=== PATIENT | male | born 1960 | race Caucasian/White ===

== ENCOUNTER → 2019-09-27 | Outpatient (CLI) | payer BC | END | disposition home or self-care (01) | LOC: LABWHC1 07:18 | PROVIDERS: ATTEND Family Medicine | DX: R19.7 Diarrhea, unspecified (principal) | CPT/HCPCS: 87635 ==

== ENCOUNTER → 2023-12-16 | Outpatient (CLI) | payer BC ==
--- NOTE | 2024-01-12 21:28 | MR ---
Patient: Toby Altamirano Ordering Physician: Unknown, Unknown ID: [id number] Phone, Pager: Phone: N/A Pager: N/A : 1960 Age/Gender: 63Y, M Primary Location: N/A Procedure: MRI PROSTATE ELSYO [facility] Study Date: 12/16/2023 8:58:17 AM EXAMINATION TYPE: MR Prostate wo/w con DATE OF EXAM: 12/30/2023 7:23 AM COMPARISON: None. CLINICAL INDICATION: Elevated PSA TECHNIQUE: Multi-planar, multi-sequence imaging of the pelvis is performed prior to and following the uncomplicated administration of bolus intravenous gadolinium. CONTRAST: 7.5 cc Gadavist Interpretive Criteria: PI-RADS v2.1 SERUM PSA: 10-10-23 = 8.64 03-15-23 = 7.88 SURGICAL PATHOLOGY: No data available. FINDINGS: Prostatic dimensions: 5.9 x 7.4 x 5.4 cm. Ellipsoid Volume:123.45 (PSA density=0.07 ng/mL/mL) CENTRAL GLAND (Central and Transition Zones/CZ+TZ): Multiple bilateral, heterogenous appearing hypertrophic stromal nodules, without suspicious lesion. M edian lobe hypertrophy with protrusion into the base of the bladder. (PI-RADS 2) PERIPHERAL ZONE (PZ): Thinning of the peripheral zone due to BPH of the central gland. No evidence of masslike abnormality, or localized perfusional hypervascularity, to further suggest a focus of clinically significant pros [place] cancer. (PI-RADS 2) SEMINAL VESICLES (SV): Symmetric and unremarkable. PERIPROSTATIC TISSUES: Unremarkable. LYMPH NODES: No enlarged pelvic lymph node. REMAINING PELVIS: Bladder wall is within normal limits given distention. No abnormal free or organized intrapelvic fluid collection. No pathologic bowel dilation or mural thickening. Bilateral fat containing inguinal hernias. OSSEOUS STRUCTURES: No suspicious osseous abnormality. IMPRESSION: 1. No specific features for high-risk prostate cancer. Maximum PI-RADS score: 2. 2. Substantial BPH, estimated gland volume 123.45 mL. 3. No suspicious osseous lesion. No lymphadenopathy. No evidence of prostate adenocarcinoma involving the periprostatic tissues.
== END | disposition home or self-care (01) ==
LOC: RADMRIMAIN 11-15 07:00
PROVIDERS: ATTEND Urology
DX: R97.20 Elevated prostate specific antigen [PSA] (principal); N40.0 Benign prostatic hyperplasia without lower urinary tract symptoms
CPT/HCPCS: 72197; A9585

== ENCOUNTER → 2024-04-01 | Outpatient (CLI) | payer OTHER ==
[2024-04-01 13:43] VITALS: BP 134/75; PULSE 64; RESP 16; TEMP 98
--- NOTE | 2024-04-01 14:02 | P.SLEEP ---
History of Present Illness DATE: 04/01/2024 CONSULTATION/NEW PATIENT EVALUATION HISTORY OF PRESENT ILLNESS/SLEEP-WAKE EVALUATION: 63-year-old gentleman had been evaluated in the sleep center for possible obstructive sleep apnea hypopnea syndrome. SLEEP SCHEDULE: Usually sleep schedule from 10 PM to 5:30 AM on weekdays and from 10 PM to 6 AM on weekend. FALLING ASLEEP: No problems with falling asleep. DURING SLEEP: Patient snores, has witnessed episodes of stop breathing during the sleep by his . Patient wakes up from sleep 3 times with nocturia, gasping for air, sweating, heartburn. Positive history of restless leg symptoms and sleep talking. No history of hypnogogical hallucinations, sleep paralysis, or cataplexy. DURING THE DAY/WAKE STATE: During the day patient has episodes of irritability. Taylor sleepiness scale is 2. Patient does not take naps. PAST MEDICAL HISTORY: BPH. PAST SURGICAL HISTORY: Prostate biopsy. MEDICATIONS: None. SOCIAL HISTORY: Please see below. FAMILY HISTORY: Please see below. REVIEW OF SYSTEMS: Snoring, multiple awakenings from sleep. No fevers. No double vision. No recent chest pain. No shortness of breath. No abdominal pain. No bleeding episodes. No blood in urine. No seizure episodes. PHYSICAL EXAMINATION: GENERAL: A pleasant patient without any distress. VITAL SIGNS: Please see below, weight 164.8 pounds, BMI 26.4. HEENT: PERRLA, EOMI. Evaluation of oropharynx showed tongue protrudes midline, low position of soft palate Mallampati 3, significant retrognathia 3 to 4 mm. NECK: Supple. No JVD. Thyroid is not palpable. 16 inches in circumference. LUNGS: Clear to percussion and to auscultation. Good air exchange. No wheezing or rhonchi. HEART: S1, S2 regular. No murmurs, gallops or rubs. ABDOMEN: Soft and nontender. Bowel sounds are present. No organomegaly appreciated. EXTREMITIES: No clubbing or cyanosis. ORE DRESSING ENGINEER: Awake, alert, and oriented x3. Cranial nerves 2 to 7 intact. There is no fasciculation or atrophy noted. No focal deficits observed. ASSESSMENT: 1. Snoring, witnessed episodes of stop breathing during the sleep, low position of soft palate Mallampati 3, retrognathia 3 to 4 mm. Obstructive sleep apnea hypopnea syndrome. 2. BPH. 3. Snoring. 4. Restless leg symptoms PLAN: 1. Polysomnography for evaluation of patient's breathing during sleep. 2. Following plan after reading sleep study. 3. Preferable position during sleep on the side. 4. No driving if patient feels any sleepiness. Patient is aware of civil and criminal liability for unsafe driving. 5. Sleep hygiene with regular sleep time for at least 7.5-8 hours. 6. Watching weight. Thank you very much for referring this patient for consultation. Sincerely, Jona Goodwin MD, PhD, FAASM. Diplomat of [place] [employer], Sleep Medicine Board by [place] [employer] [place] [employer] [facility] [place] cc: Kim Crow MD Past Medical History Past Medical History: Prostate Disorder History of Any Multi-Drug Resistant Organisms: None Reported Additional Past Surgical History / Comment(s): prostate biopsy Past Anesthesia/Blood Transfusion Reactions: No Reported Reaction Past Psychological History: No Psychological Hx Reported Smoking Status: Never smoker Past Alcohol Use History: Rare Past Drug Use History: None Reported - Past Family History Mother Family Medical History: Hypertension Father Family Medical History: Cancer, Hyperlipidemia, Hypertension, Prostate Disorder Physical Exam Vitals: Vital Signs Temp Pulse Resp BP Pulse Ox 04/01/24 13:42 98.0 F 64 16 134/75 98 Intake and Output 03/31/24 04/01/24 04/01/24 22:59 06:59 14:59 Other: Weight 74.389 kg Sleep Note - Sleep Data ESS Total: 2 - Sleep Note Sleep Note: Temperature: 98.0 F Pulse Rate: 64 Respiratory Rate: 16 Blood Pressure: 134/75 SpO2: 98 Height: 5 ft 6 in Weight: 74.389 kg BMI: Neck Circumference: 16
== END ==
LOC: 3 N SLEEP 13:09
PROVIDERS: ATTEND Internal Medicine
DX: G47.33 Obstructive sleep apnea (adult) (pediatric) (principal); M26.19 Other specified anomalies of jaw-cranial base relationship; N40.0 Benign prostatic hyperplasia without lower urinary tract symptoms; G25.81 Restless legs syndrome
CPT/HCPCS: 99211

== ENCOUNTER → 2024-06-03 | Day surgery (SDC) | payer OTHER ==
[~2024-06-03] MED LIST: DEXAMETHASONE SOD PHOSPHATE 4 MG/ML 1 ML VIAL ONE; GLYCOPYRROLATE 0.2 MG/ML 2 ML VIAL ONE; HYDROmorphone (PF) 1 MG/ML ONE; HYDROmorphone 0.5 MG/0.5 ML SYRINGE IVP PRN; KETOROLAC 15 MG/ML 1 ML VIAL ONE; LIDOCAINE 1% INJ 10MG/ML (20 ML MDV) ONE; MIDAZOLAM 2 MG/2 ML VIAL ONE; NEOSTIGMINE 1 MG/ML 10 ML VIAL ONE; PHENYLEPHRINE-0.9% NACL SYG 1,000 MCG/10 ML SYRINGE ONE; PROPOFOL 10 MG/ML 20 ML VIAL IV ONE; ROCURONIUM 10 MG/ML (5 ML VIAL) IV ONE; ROPIVACAINE 5 MG/ML 30 ML VIAL ONE; SCOPOLAMINE 1 MG/72 HR PATCH TRANSDERM ONE; SODIUM CHLORIDE 0.9% (PF) 10 ML VIAL ONE; SUCCINYLCHOLINE CHLORIDE 200 MG/10 ML VIAL IV ONE; fentaNYL (PF) 50 MCG/ML 2 ML AMP ONE
[2024-06-03] MEDS: IV FLUID CONTINUATION 1,000 ML IV ONE (11:19)
[2024-06-03] MEDS: fentaNYL (PF) 50 MCG/ML 2 ML AMP IVP ONE (11:40)
[2024-06-03] MEDS: MIDAZOLAM 2 MG/2 ML VIAL IV PRN (11:40)
[2024-06-03 11:47] LABS: HCT 41.3 % (39.0-53.0); HGB 14.3 gm/dL (13.0-17.5); MCH 29.9 pg (25.0-35.0); MCHC 34.7 g/dL (31.0-37.0); MCV 85.9 fL (80.0-100.0); Platelet Count 227 k/uL (150-450); RDW 12.4 % (11.5-15.5); WBC 8.3 k/uL (3.8-10.6)
--- NOTE | 2024-06-03 11:56 | P.ANPRN ---
Procedure Note - Anesthesia - Nerve Block Performed Bilateral Erector Spinae Single Time Out Performed: Yes Date of Procedure: 06/03/24 Procedure Start Time: 11:39 Procedure Stop Time: 11:46 Location of Patient: PreOp Indication: Acute Post-Operative Pain Sedation Type: Sedate with meaningful contact maintained Preparation: Sterile Prep Position: Prone Needle Types: Pajunk Needle Gauge: 21 Ultrasound used to visualize needle placement: Yes Ultrasound used to observe medication spread: Yes Injectate: 0.5% Ropivacaine (see comment for volume) (20 mL +10 mL of normal saline +4 mg dexamethasone per side) Blood Aspirated: No Pain Paresthesia on Injection Noted: No Resistance on Injection: Normal Image Stored and Saved: Yes Events: Uneventful and Well Tolerated
[2024-06-03] MEDS: HEPARIN SODIUM,PORCINE 5,000 UNIT/ML 1 ML VIAL SQ PRN (11:58)
[2024-06-03] MEDS: DEXAMETHASONE SOD PHOSPHATE 4 MG/ML 1 ML VIAL IV ONE (11:59)
[2024-06-03] MEDS: ONDANSETRON 4 MG/2 ML VIAL IVP ONE (11:59)
[2024-06-03] MEDS: BUPIVACAINE (PF) 0.25% 30 ML VIAL SQ ONE ×2 (13:31)
[2024-06-03] MEDS: LACTATED RINGERS 1,000 ML IV ONE ×2 (13:58→16:47)
[2024-06-03 14:36] VITALS: RESP 16; TEMP 96.8
[2024-06-03] MEDS: HYDROcodone/APAP 5-325MG 1 EACH TAB PO PRN (15:35)
[2024-06-03] MEDS: LACTATED RINGERS 1,000 ML IV SCH (16:46)
[2024-06-03 16:52] VITALS: BP 144/72; PULSE 75
[2024-06-03] MEDS: TAMSULOSIN 0.4 MG CAP.ER.24H PO STA (17:17)
--- NOTE | 2024-06-03 21:33 | P.OP ---
Date of Procedure: 06/03/24 Preoperative Diagnosis: Bilateral inguinal hernia Postoperative Diagnosis: Bilateral inguinal hernia, left side indirect hernia, right side direct hernia Procedure(s) Performed: Robotic bilateral inguinal hernia repair with mesh placement Anesthesia: JIM Surgeon: Jack Conley Pathology: none sent Condition: stable Disposition: same day Indications for Procedure: 63-year-old male presented to the surgery clinic with complaint of left groin bulge and pain that has been increasing in symptoms over time. On examination he is found to have bilateral inguinal hernia. Plan is for robotic bilateral inguinal hernia repair with mesh placement. Risks, benefits and alternatives were provided to the patient. All questions answered. Operative Findings: Bilateral inguinal hernia Left-sided indirect inguinal hernia Right sided direct inguinal hernia Description of Procedure: The patient was brought to the operating suite and placed in supine position on the operating table. After general endotracheal anesthesia was induced, arms were tucked to the sides bilaterally and pressure points were padded. SCDs were also placed in bilateral lower extremities. Preoperative antibiotics were given prior to incision. A the patient was prepped and draped in regular sterile fashion. A supraumbilical incision was made and dissection was carried towards the fascia and the fascia was incised and an 8 mm trocar was placed. Pneumoperitoneum was achieved. 2 additional 8 mm trocars were placed 11 cm lateral to the supraumbilical incision site. The patient was then placed in Trendelenburg position and the hernia sites were clearly visualized bilaterally. The left inguinal hernia was noted to be indirect and the right inguinal hernia was noted to be direct. The robot was then docked appropriately. Incision was then made just lateral to the medial umbilical ligament on the left side with the monopolar scissors and the peritoneal flap was created and was taken down towards Javid's ligament. The flap was then extended laterally. Attention was then turned to the indirect inguinal hernia. The sac was freed from the cord all while preserving the cord structures. At this point the indirect hernia was reduced. Once the entire space was appropriately dissected out, attention was turned towards the right side. Similarly, incision was made just lateral to the medial umbilical ligament on the right side with the monopolar scissors and the peritoneal flap was created and was taken down towards Javid's ligament. The flap was then extended laterally. Attention was then turned to the hernia and the sac was freed from surrounding structures. Once the entire space was appropriately dissected out, we brought the ProGrip mesh bilaterally and unrolled it over the hernia sites. Once appropriately in place without any folds or kinks, the peritoneal flap was closed using a running 2 oh V-Loc suture on both sides. Once this was completed we removed the robotic instruments and undocked the robot. The supraumbilical fascial incision was closed with an 0 Vicryl suture using a Carl-Jimbo device. This was done under laparoscopic guidance. All skin incisions were then closed with 4-0 Vicryl suture. Sterile dressing was applied. The patient was awakened in the operating suite and taken to postanesthesia care unit in stable condition.
== END | disposition home or self-care (01) ==
LOC: OR 10:52
PROVIDERS: ATTEND Surgery
DX: K40.20 Bilateral inguinal hernia, without obstruction or gangrene, not specified as recurrent (principal); G89.18 Other acute postprocedural pain; N40.0 Benign prostatic hyperplasia without lower urinary tract symptoms; F40.240 Claustrophobia
CPT/HCPCS: 49650; S2900; 64999; 85027

== ENCOUNTER 2024-06-04 02:37 | Emergency (ER) | payer OTHER ==
[2024-06-04 03:02] VITALS: TEMP 98.8
[2024-06-04] MEDS: HYDROcodone/APAP 5-325MG 1 EACH TAB PO STA (04:00)
[2024-06-04] MEDS: LIDOCAINE 2% URO-JET JELLY 5 ML KIT URETHRAL ONE (04:00)
--- NOTE | 2024-06-04 04:35 | ED ---
General Adult HPI - General Chief complaint: Abdominal Pain Stated complaint: Burning from post op surgery site Time Seen by Provider: 06/04/24 03:04 Source: patient, RN notes reviewed, old records reviewed Mode of arrival: wheelchair Limitations: no limitations - History of Present Illness Initial comments: 63-year-old male postop day 1 after robotic assist bilateral inguinal hernia repair. Patient has had urinary frequency and urgency and lower abdominal discomfort. He has been able to urinate but only small amounts. - Related Data Home Medications Medication Instructions Recorded Confirmed L.acidoph,Paracasei, B.lactis 1 each PO DAILY 05/30/24 06/03/24 [Probiotic] Previous Rx's Medication Instructions Recorded HYDROcodone/APAP 5-325MG [Crozier 1 tab PO Q6HR PRN 3 Days #12 tab 06/03/24 5-325] Ibuprofen [Motrin] 600 mg PO Q8HR PRN #30 tab 06/03/24 Allergies Allergy/AdvReac Type Severity Reaction Status Date / Time No Known Allergies Allergy Verified 06/04/24 03:02 Review of Systems ROS Statement: Those systems with pertinent positive or pertinent negative responses have been documented in the HPI. ROS Other: All systems not noted in ROS Statement are negative. Past Medical History Past Medical History: Prostate Disorder History of Any Multi-Drug Resistant Organisms: None Reported Additional Past Surgical History / Comment(s): prostate biopsy Past Anesthesia/Blood Transfusion Reactions: No Reported Reaction Past Psychological History: No Psychological Hx Reported Past Alcohol Use History: Rare - Past Family History Mother Family Medical History: Hypertension Father Family Medical History: Cancer, Hyperlipidemia, Hypertension, Prostate Disorder General Exam Limitations: no limitations General appearance: alert, in no apparent distress Head exam: Present: atraumatic, normocephalic Eye exam: Present: normal appearance, PERRL ENT exam: Present: normal exam Neck exam: Present: normal inspection. Absent: tenderness, meningismus Respiratory exam: Present: normal lung sounds bilaterally. Absent: respiratory distress, wheezes Cardiovascular Exam: Present: regular rate, normal rhythm GI/Abdominal exam: Present: distended, other (Distention the bladder) Neurological exam: Present: alert, oriented X3 Psychiatric exam: Present: normal affect, normal mood Skin exam: Present: warm, dry, intact Course Vital Signs 06/04/24 02:56 Temperature 98.8 F Pulse Rate 81 Respiratory 18 Rate Blood Pressure 123/74 O2 Sat by Pulse 96 Oximetry Medical Decision Making - Medical Decision Making Was pt. sent in by a medical professional or institution (ERIBERTO Sanchez, SYSTEMS LEAD, urgent care, hospital, or fci...) When possible be specific @ -No Did you speak to anyone other than the patient for history (EMS, parent, family, police, friend...)? What history was obtained from this source @ -No Did you review nursing and triage notes (agree or disagree)? Why? @ -I reviewed and agree with nursing and triage notes Were old charts reviewed (outside hosp., previous admission, EMS record, old EKG, old radiological studies, urgent care reports/EKG's, fci records)? Report findings @ -No old charts were reviewed Differential Diagnosis: urinary retention, cystitis, UTI, urethritis EKG interpreted by me (3pts min.). @ -As above X-rays interpreted by me (1pt min.). @ -None done CT interpreted by me (1pt min.). @ -None done U/S interpreted by me (1pt. min.). @ -None done What testing was considered but not performed or refused? (CT, X-rays, U/S, labs)? Why? @ -None What meds were considered but not given or refused? Why? @ -None Did you discuss the management of the patient with other professionals (professionals i.e. ERIBERTO Sanchez, SYSTEMS LEAD, lab, RT, psych nurse, social work administrator, inventory associate, teacher, ski patrol officer, rn case mgr)? Give summary @ -No Was smoking cessation discussed for >3mins.? @ -No Was critical care preformed (if so, how long)? @ -No Were there social determinants of health that impacted care today? How? (Homelessness, low income, unemployed, alcoholism, drug addiction, transportation, low edu. Level, literacy, decrease access to med. care, [facility], rehab)? @ -No Was there de-escalation of care discussed even if they declined (Discuss DNR or withdrawal of care, Hospice)? DNR status @ -No What co-morbidities impacted this encounter? (DM, HTN, Smoking, COPD, CAD, Cancer, CVA, ARF, Chemo, Hep., AIDS, mental health diagnosis, sleep apnea, morbid obesity)? @ -None Was patient admitted / discharged? Hospital course, mention meds given and route, prescriptions, significant lab abnormalities, going to OR and other pertinent info. @ -63-year-old male with suspected urinary retention postoperatively. Bladder scan shows approximately 900 cc of urine. Patient is offered either straight cath or Bonilla catheter. Prefers Bonilla catheter at this time. He will follow- up with urology regarding catheter removal. Undiagnosed new problem with uncertain prognosis? @ -No Drug Therapy requiring intensive monitoring for toxicity (Heparin, Nitro, Insulin, Cardizem)? @ -No Were any procedures done? @ -No Diagnosis/symptom? @ -[Acute postoperative urinary retention Acute, or Chronic, or Acute on Chronic? @ -Acute Uncomplicated (without systemic symptoms) or Complicated (systemic symptoms)? @ -Default Side effects of treatment? @ -No Exacerbation, Progression, or Severe Exacerbation? @ -No Poses a threat to life or bodily function? How? (Chest pain, [place], PR, pneumonia, PE, COPD, DKA, ARF, appy, cholecystitis, CVA, Diverticulitis, Homicidal, Suicidal, threat to staff... and all critical care pts) @ -No Disposition Clinical Impression: Urinary retention Disposition: HOME SELF-CARE Condition: Fair Instructions (If sedation given, give patient instructions): Urinary Retention in Men (ED) Is patient prescribed a controlled substance at d/c from ED?: No Referrals: Kim Crow MD [Primary Care Provider] - 1-2 days Thomas Howe MD [STAFF PHYSICIAN] - 1-2 days Time of Disposition: 04:35
[2024-06-04 04:56] LABS: Appearance,Urine Clear (Clear); Bilirubin,Urine Negative (Negative); Blood,Urine Negative (Negative); Color,Urine Yellow; Glucose,Urine (UA) Negative (Negative); Ketones,Urine Trace (Negative); Leukocyte Esterase,Urine Negative (Negative); Nitrite,Urine Negative (Negative); Protein,Urine Negative (Negative); Specific Gravity,Urine 1.007 (1.001-1.035); Urobilinogen,Urine <2.0 mg/dL (<2.0)
[2024-06-04 06:10] VITALS: BP 113/65; PULSE 74; RESP 16
== END 2024-06-04 05:36 | disposition home or self-care (01) ==
LOC: EC 02:37
DX: R33.9 Retention of urine, unspecified (principal)
CPT/HCPCS: 51702; 51798; 81003; 99284

== ENCOUNTER 2024-07-01 19:39 | Outpatient (CLI) | payer OTHER ==
--- NOTE | 2024-07-03 15:17 | P.PCN ---
Description of Procedure: PROCEDURE(S)/DATE(S): Polysomnography 2024 CLINICAL: Patient has been seen in the sleep center for evaluation of obstructive sleep apnea-hypopnea syndrome. Please see my consultation. Sleep study has been done for evaluation of patient breathing during the sleep. PROCEDURE: The standard montage for clinical polysomnography included the electroencephalogram, the electrooculogram, the mentalis surface electromyography and Lead II cardiography. The respiratory battery consisted of measurements of nasal/buccal air flow, pressure transducer measurements from nose, thoracic and/or abdominal effort and intercostal surface electromyography. Video monitoring has been done to check for any parasomnia events. Nocturnal oxyhemoglobin saturations were obtained by finger oximetry. Step-spann titration with positive airway pressure was utilized to control the respiratory events, if necessary. RESULTS: Sleep efficiency was decreased to 76.6%. Latency to sleep onset was normal 21.0 minutes.]. Sleep architecture showed stage N1 was increased to 15.4%, Delta sleep was absent 0%, REM sleep was short 8.2%. Heart rate was minimum 64 BPM, maximum 75 BPM, average 69 BPM. EMG showed 23.0 periodic limb movements per hour with 0.2 Microarousals. Respiratory channel showed 0 obstructive apneas, 0 mixed apneas, 5 central apneas, 26 hypopneas with total apnea hypopnea index 5.7 and lowest oxygen level 86%. IMPRESSIONS: 1. Mild obstructive sleep apnea hypopnea syndrome. 2. Periodic limb movements have been documented. Please see other impressions from consultation PLAN: 1. I will see patient for follow-up visit to explain results of the test and recommendations. 2. Please check iron profile including ferritin level. Low level of iron may increase the risk for periodic limb movements. 3. Sleep hygiene with regular time in bed for at least 7-1/2 hours. 4. No driving if feeling sleepiness. Thank you very much for allowing me to participate in the management of your patient. Sincerely, Jona Goodwin MD, PhD, FAASM. Diplomat of [place] [employer], Sleep Medicine Board by [place] [employer] [facility] [employer] [place] Micriarousals per hour. PAP titration have been done with CPAP up to the pressure [] cm H2O. Patient had problems with CPAP, switched to BPAP. BPAP titrated up to [] cm H2O. The best results were at the pressure [] cm H2O. Apnea hypopnea index reduced to []. Thank you very much for allowing me to participate in the management of your patient. Sincerely, Jona Goodwin MD, PhD, FAASM Diplomat of [place] [employer] Sleep Medicine Board of [place] [employer] [facility] [place] cc: Kim Crow MD
== END 2024-07-02 05:48 | disposition home or self-care (01) ==
LOC: 3 N SLEEP 19:39
PROVIDERS: ATTEND Internal Medicine
DX: G47.33 Obstructive sleep apnea (adult) (pediatric) (principal); G47.61 Periodic limb movement disorder
CPT/HCPCS: 95810